=== PATIENT | female | born 1990 | race Caucasian/White ===

== ENCOUNTER 2020-12-29 08:07 | Day surgery (SDC) | payer OTHER ==
[~2020-12-29] VITALS: Ht 175.3 cm; Wt 65.9 kg
[~2020-12-29 08:07] MED LIST: HYDROmorphone 2 MG/ML VIAL IVP PRN; IV RINGERS,LACTATED 1000ML 1,000 ML IV SCH; fentaNYL PF VIAL 100 MCG/2 ML VIAL IVP PRN
[2020-12-29] MEDS ORDERED: ARIP20TA5 PO (08:30)
[2020-12-29] MEDS ORDERED: LITH300T30 PO (08:30)
[2020-12-29] MEDS ORDERED: ROPIVacaine 0.5% PF 20 ML VIAL. ONE (08:59)
[2020-12-29] MEDS ORDERED: DEXAMETHASONE SOD PHOS 4 MG/ML VIAL ONE ×2 (08:59→09:45)
[2020-12-29] MEDS ORDERED: FAMOTIDINE 20 MG/2 ML VIAL ONE (08:59)
[2020-12-29] MEDS ORDERED: MIDAZOLAM HCL/PF 2 MG/2 ML VIAL. ONE (09:00)
[2020-12-29] MEDS ORDERED: TRAM50TA PO (09:21)
--- NOTE | 2020-12-29 09:24 | DISCH ---
DISCHARGE INSTRUCTIONS Condition on Discharge Condition on Discharge: Stable Activity After Discharge Activity Instructions for Disc: Avoid exertion Bathing Instructions: Shower-keep dressing dry Driving Instructions after Dis: Do not drive today Sexual Activity Restrictions: no use right upper extremity Wound Incision Care Wound/Incision Care: Ice to area for comfort, Do not change dressing Follow-Up Follow up with: 10-14 days VERONICA TONEY Jr. DO Dec 29, 2020 09:24
[2020-12-29] MEDS ORDERED: PROPOFOL 10 MG/ML (20ML) VIAL. IV ONE (09:45)
[2020-12-29] MEDS ORDERED: ONDANSETRON PF 4 MG/2 ML VIAL. ONE (09:45)
[2020-12-29] MEDS ORDERED: LIDOCAINE 2% PF 5 ML VIAL. ONE (09:45)
[2020-12-29] MEDS ORDERED: KETAMINE HCL IN NACL, ISO-OSM 50 MG/5 ML SYRINGE ONE (10:29)
[2020-12-29] MEDS ORDERED: BUPIVACAINE MPF 0.5% 30 ML VIAL. ONE (10:51)
--- NOTE | 2020-12-29 10:57 | PDOC4 ---
OPERATIVE NOTE Date: Date: Dec 29, 2020 Pre-Op Diagnosis: Displaced fracture fourth metacarpal right hand Post-Op Diagnosis: Same Procedure Performed: Open reduction internal fixation right fourth metacarpal Surgeon: Dalila Anesthesia Type: General Blood Loss: 10 cc Specimans Obtained: None Findings: See dictation Complications: None VERONICA TONEY Jr. DO Dec 29, 2020 10:57
[2020-12-29] MEDS ORDERED: SEVOFLURANE 31 TO 60 MINUTES. IH ONE (10:59)
[2020-12-29] MEDS ORDERED: PROCHLORPERAZINE 10 MG/2 ML VIAL. ONE (11:13)
[2020-12-29] MEDS ORDERED: fentaNYL PF VIAL 100 MCG/2 ML VIAL ONE (11:13)
[2020-12-29] MEDS: fentaNYL PF VIAL 100 MCG/2 ML VIAL IVP PRN ×2 (11:31→11:44)
[2020-12-29] MEDS ORDERED: MORPHINE SULFATE 2 MG/ML INJ. ONE (11:33)
[2020-12-29] MEDS: MORPHINE SULFATE 2 MG/ML INJ. IVP PRN ×2 (11:34→11:45)
[2020-12-29] MEDS: PROCHLORPERAZINE 10 MG/2 ML VIAL. IVP PRN ×2 (11:48→12:02)
[2020-12-29] MEDS ORDERED: traMADol 50 MG TABLET PO ONE (12:00)
[2020-12-29] MEDS ORDERED: SCOPOLAMINE 1.5MG PATCH. TD ONE (12:15)
--- NOTE | 2020-12-29 12:33 | OP ---
DATE OF SURGERY: 12/29/2020 PREOPERATIVE DIAGNOSIS: Fracture, displaced right fourth metacarpal. POSTOPERATIVE DIAGNOSIS: Fracture, displaced right fourth metacarpal.. PROCEDURE: Open reduction and internal fixation, right fourth metacarpal. SURGEON: Prashant Conner Jr., DO ANESTHESIA: General. COMPLICATIONS: None. ESTIMATED BLOOD LOSS: 10 mL. SCIENTIFIC RESEARCH ASSOCIATE: Jun Schultz DESCRIPTION OF PROCEDURE: The patient was taken to the operative suite, given a general anesthetic. Right upper extremity was then prepped and draped in a sterile fashion. Incision was made directly over the area of the fourth metacarpal. This was taken down through skin and subcutaneous tissues and the extensor tendon was easily identified and removed from the area. Once this was removed from the area, the fracture was easily identified. The fragments were noted with some soft tissue interposed in between the two fragments that was removed in its entirety. This was then held in a closed reduction with clamps. After this was performed, the fracture was noted to be extremely thinned proximally. Therefore, only one screw could be placed. This was overdrilled in a lag fashion. This fixated the fracture pattern appropriately with good bone and fixation that was noted to be satisfactory overall. Due to the fact that this would need to have a second screw, but there was no room small screws would have broken the most proximal aspect of that fragment, a small 0.035 K-wire was placed across the fracture fragments fixing this appropriately. This was anatomic in AP and lateral projections using the C-arm. Therefore, the wound was then thoroughly irrigated. The pin was bent. The superficial tissues and skin was reapproximated. Jurgan ball was placed. Sterile dressing was applied along with a volar splint. The patient was then taken from the operative bed to the postoperative bed, taken to the PACU in stable condition. BLAISE/EDDIE/JESSICA DR: Venkata TID: [id number]
[2020-12-29] MEDS ORDERED: ONDANSETRON PF 4 MG/2 ML VIAL. IM ONE (12:45)
[2020-12-29] MEDS ORDERED: ONDANSETRON PF 4 MG/2 ML VIAL. IVP ONE (12:45)
[2020-12-29 13:00] VITALS: BP 135/81
== END 2020-12-29 13:30 | disposition home or self-care (01) ==
LOC: SURG 08:07
PROVIDERS: ATTEND Orthopaedic Surgery
DX: S62.304A Unspecified fracture of fourth metacarpal bone, right hand, initial encounter for closed fracture (principal); F41.9 Anxiety disorder, unspecified; Z79.899 Other long term (current) drug therapy; Z90.49 Acquired absence of other specified parts of digestive tract; Z98.890 Other specified postprocedural states; X58.XXXA Exposure to other specified factors, initial encounter; Y93.89 Activity, other specified; Y92.89 Other specified places as the place of occurrence of the external cause; Y99.8 Other external cause status
CPT/HCPCS: 26615; 81025; A4209; A4364; A4930; A6449; C1713; J0690; J0780; J1100; J2250; J2270; J2405; J2704; J2795; J3010; J3490; A4452